=== PATIENT | female | born 1985 | race Hispanic/Latino ===

== ENCOUNTER → 2022-08-05 | Outpatient (CLI) | payer OTHER | LOC: M RAD 10:14 | PROVIDERS: ATTEND Nurse Practitioner Adult Health | DX: J45.40 Moderate persistent asthma, uncomplicated (principal) ==

== ENCOUNTER → 2022-12-23 | Outpatient (CLI) | payer OTHER | LOC: M RAD 07:46 | PROVIDERS: ATTEND Nurse Practitioner Adult Health | DX: R91.8 Other nonspecific abnormal finding of lung field (principal) ==

== ENCOUNTER 2024-03-10 09:11 | Day surgery (SDC) | payer OTHER ==
[~2024-03-10] VITALS: Ht 167.6 cm; Wt 83.5 kg
[~2024-03-10 09:11] MED LIST: ACET1TAB37 PO; ALBU8.5H INH; CELE0.09 PO; ECOT81TA5 PO; FLUT1BLS3 PO; LORA-930 PO; MELO7.5T35 PO; MM S100C PO; MONT10TA97 PO; PERCOCET PO; SEMA0.257 SQ; TIZA10TA PO; TOPI-21 PO
[2024-03-10] MEDS ORDERED: ACETAMINOPHEN 1000MG 100ML IV BAG As Ordered ONE (09:55)
[2024-03-10] MEDS ORDERED: propofoL 200 MG/20 ML VIAL As Ordered ONE (09:55)
[2024-03-10] MEDS ORDERED: KETOROLAC 60MG 2ML VIAL As Ordered ONE (09:55)
[2024-03-10] MEDS ORDERED: ONDANSETRON 4MG 2ML VIAL As Ordered ONE (09:55)
[2024-03-10] MEDS ORDERED: LR 1,000 ML IV SCH ×2 (10:10→14:25)
[2024-03-10] MEDS: MIDAZOLAM INJ 2MG/2ML VIAL IV PRN (11:40)
[2024-03-10] MEDS: fentaNYL 100 MCG/2 ML INJECTION IV PRN (11:44)
[2024-03-10] MEDS: dexAMETHasone 10MG/1ML VIAL PRES.FREE PN ONE (11:58)
[2024-03-10] MEDS: LIDOCAINE 1% SDV 5ML VIAL PN ONE (11:58)
[2024-03-10] MEDS: ROPIvacaine 0.5% 30ML VIAL PN ONE (11:58)
[2024-03-10] MEDS: EPINEPHrine INJ 1 MG/ML 1ML AMP PN ONE (11:58)
[2024-03-10] MEDS ORDERED: ROPIvacaine 0.5% 30ML VIAL As Ordered ONE (12:28)
[2024-03-10] MEDS ORDERED: TRANEXAMIC ACID 100 MG/ML 10ML VIAL As Ordered ONE (12:40)
[2024-03-10] MEDS: ceFAZolin SOD 2 GM in IV 1 EA IV ONE (12:41)
[2024-03-10] MEDS: TRANEXAMIC ACID 100 MG/ML 10ML VIAL IV ONE (12:45)
[2024-03-10] MEDS ORDERED: fentaNYL 100 MCG/2 ML INJECTION IV PRN (14:25)
[2024-03-10] MEDS ORDERED: ONDANSETRON 4MG 2ML VIAL IV PRN (14:25)
[2024-03-10] MEDS: HYDROMORPHONE HCL 0.5 MG/ 0.5 ML SYRINGE IV PRN (14:35)
[2024-03-10] MEDS: oxyCODONE 5MG TAB PO PRN (14:44)
[2024-03-10 16:15] VITALS: BP 125/73; TEMP 97.3; O2SAT 97
== END 2024-03-10 16:38 | disposition home or self-care (01) ==
LOC: M SDC 09:11
PROVIDERS: ATTEND Orthopaedic Surgery
DX: S82.62XA Displaced fracture of lateral malleolus of left fibula, initial encounter for closed fracture (principal); S93.439A Sprain of tibiofibular ligament of unspecified ankle, initial encounter; W19.XXXA Unspecified fall, initial encounter; Y93.K1 Activity, walking an animal; Y92.9 Unspecified place or not applicable; J45.909 Unspecified asthma, uncomplicated; Z79.899 Other long term (current) drug therapy
CPT/HCPCS: 27792; 27829; 76000; C1713; C9290; J0131; J0690; J1100; J1170; J1885; J2250; J2405; J3010